=== PATIENT | male | born 1965 | race Caucasian/White ===

== ENCOUNTER 2017-11-15 21:29 | Inpatient (IN) | payer OTHER ==
[~2017-11-15] VITALS: Ht 172.7 cm; Wt 107.5 kg
--- NOTE | ~2017-11-15 | EKG ---
[place] [address] [facility] [facility] [place] [address] ELECTROCARDIOGRAM REPORT Name: ANNEL REINOSO Room #: 349-I ADM IN M.R.#: [id number] Admission: 11/16/17 Attend Phys: Westley Navarro MD Discharge: Date of : 67 Report #: [id number] THIS REPORT FOR: //name// [facility] ED Test Date: 2017-11-15 Test Time: 21:57:26 Pat Name: ANNEL REINOSO Department: Room: 349 Gender: M Interpreter Translator: Mandy CHURCHILL : 1965 Requested By: Lei Ryan Order Number: [id number] MD: Roger Frank Measurements Intervals [place] Rate: 105 P: 36 TX: 199 QRS: 26 QRSD: 98 T: 15 QT: 335 QTc: 443 Interpretive Statements Sinus tachycardia Borderline prolonged TX interval Borderline T wave abnormalities No previous ECG available for comparison Electronically Signed On 11-16-2017 8:24:13 MEAT BUTCHER by Roger Frank [email or web address] <ELECTRONICALLY SIGNED> By: Roger Frank MD, [facility] 11/16/17 0824 [id number] [id number] Roger Frank MD, FACC /EPI
--- NOTE | ~2017-11-15 | HC ---
[facility] [place] [address] CONSULTATION Name: ANNEL REINOSO Room #: 349-I ADM IN M.R.#: [id number] Admission: 11/16/17 Attend Phys: John Jade MD Discharge: Date of : 67 Report #: [id number] THIS REPORT FOR: //name// CC: Vandana Navarro REASON FOR CONSULTATION: I was asked to evaluate concerning pulmonary infiltrates. HISTORY OF PRESENT ILLNESS: The patient was a 52-year-old with a history of gastroesophageal reflux and ventral hernia. About 3 weeks ago, had acute onset of epistaxis. It was significant enough that he had to come home from work. It happened another time several days later. He was evaluated in the outpatient clinic by ENT. He was scheduled to have a CAT scan of his sinuses. Yesterday noticed some discomfort in his posterior oropharynx with a tickle sensation. He then developed a cough with hemoptysis. He has been progressively short of breath over the last several months to a year. He has gained a significant amount of weight. No fever, chills or sweats noted. Also, no fever or chills in the last several days. He has had no previous sinus, pulmonary or GI interventions. He has had a ventral hernia repair and does have known gastroesophageal reflux. He uses a large amount of Aleve for degenerative arthritis symptoms. No HIV risk factors. No tuberculosis exposure. No recent travel. Lives with his . He is otherwise feeling reasonably well. 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 He reports no vomiting, diarrhea, blood in his stool, blood in his urine, rash, iritis symptoms, swelling of his joints, neurologic changes. ALLERGIES: None. MEDICATIONS: As noted on his MAR, having been placed on azithromycin and ceftriaxone. FAMILY HISTORY: Noncontributory. SOCIAL HISTORY: He is a past smoker. No significant alcohol intake. He does smoke marijuana on occasion. PAST MEDICAL HISTORY: Degenerative arthritis, abdominal ventral hernia repair, hypertension. REVIEW OF SYSTEMS: Noted above. PHYSICAL EXAMINATION: VITAL SIGNS: Afebrile, hemodynamically stable. GENERAL: He is alert and cooperative and pleasant, in no acute distress. He is [address] [address] CONSULTATION Name: ANNEL REINOSO Room #: 349-I ADM IN M.R.#: [id number] Admission: 11/16/17 Attend Phys: John Jade MD Discharge: Date of : 67 Report #: [id number]. SKIN: Unremarkable. LYMPH: Unremarkable. HEENT: Unremarkable. NECK: Supple, no adenopathy. LUNGS: Crackles in the bases bilaterally, no consolidation. HEART: Regular, without murmur. ABDOMEN: Protuberant. He had a ventral hernia in the upper abdomen. No hepatosplenomegaly or mass. EXTREMITIES: Unremarkable. NEUROLOGIC: Unremarkable. LABORATORY STUDIES: Sodium 142, potassium 4, bicarbonate 27, creatinine 0.9, alkaline phosphatase 43, ALT less than 6. INR 1. Hemoglobin 11.2, platelet count 285,000, WBC 7.9, unremarkable differential. Sedimentation rate was 15. ANCA pending. Blood cultures pending. Chest x-ray, bilateral pulmonary infiltrates, greatest in the bases. CT of the chest shows the same with moderate mediastinal adenopathy. CT of the sinuses showed mucus plugging in the left ostiomeatal complex. He had mild left maxillary sinus thickening. No air fluid levels identified. No bony erosions. IMPRESSION: A 52-year-old with hemoptysis and a history of recent epistaxis with bilateral interstitial pulmonary infiltrates, left greater than right, mostly in the lower lobes. He does have some upper lobe disease and some adenopathy. Would suggest atypical infection versus vasculitis. Would recommend obtaining samples for bacteria, AFB, virus serum studies for HIV, histoplasma, mycobacterial disease. Hold his Aleve for now. I have discussed with Pulmonary Medicine. Pending further evaluation, may need bronchoscopy to further delineate this process. Would control blood pressure for he does have evidence of hypertension that may be contributing to his nosebleeds. <ELECTRONICALLY SIGNED> By: Guy Aguilar MD 11/17/17 0826 1135 1200 Guy Aguilar MD /nt
[2017-11-15 21:33] VITALS: BP 148/102; BP 170/102
[2017-11-15 22:13] LABS: ANION GAP 13 mmol/L (7-16); CALCIUM 7.7 mg/dL (8.5-10.1); CHLORIDE 104 mmol/L (98-107); CO2 26 mmol/L (21-32); POTASSIUM 3.8 mmol/L (3.5-5.1); SODIUM 143 mmol/L (136-145)
[2017-11-15 22:15] LABS: ABSOLUTE NEUTROPHILS 5.7 thou/uL (1.4-8.2); BASOPHILS 0.6 % (0.0-2.0); EOSINOPHILS 3.1 % (0.0-3.0); HEMATOCRIT 36.3 % (42.0-52.0); HEMOGLOBIN 12.6 gm/dL (14.0-18.0); LYMPHOCYTES 20.3 % (24.0-44.0); MCH 30.5 pg (26.0-34.0); MCHC 34.6 g/dL (28.0-37.0); MCV 87.9 fL (80.0-100.0); PLATELET COUNT 322 thou/uL (150-400); RBC 4.12 mil/uL (4.50-6.00); RDW 13.6 % (10.5-14.5); WBC 8.2 thou/uL (4.0-11.0)
[2017-11-15 22:22] LABS: ALBUMIN 3.6 g/dL (3.4-5.0); LIPASE 180 U/L (73-393); SGPT < 6 U/L (30-65); TOTAL BILIRUBIN 0.5 mg/dL (<0.1-1.0); TROPONIN-I < 0.04 ng/mL (<0.06)
[2017-11-15 22:23] LABS: BUN 18 mg/dL (7-18); GLUCOSE 207 mg/dL (74-106)
[2017-11-15 22:42] LABS: DIRECT BILIRUBIN < 0.1 mg/dL (<0.1-0.3)
[2017-11-15 23:05] LABS: SGOT 33 U/L (15-37)
[2017-11-16] VITALS (7 sets, daily range): BP systolic 138–170; BP diastolic 76–108
[2017-11-16 04:15] LABS: HEMATOCRIT 33.9 % (42.0-52.0); HEMOGLOBIN 11.2 gm/dL (14.0-18.0); MCH 29.1 pg (26.0-34.0); MCHC 33.1 g/dL (28.0-37.0); RBC 3.85 mil/uL (4.50-6.00); WBC 7.9 thou/uL (4.0-11.0)
[2017-11-16 04:23] LABS: CALCIUM 8.4 mg/dL (8.5-10.1); CREATININE 0.9 mg/dL (0.7-1.3)
[2017-11-16 04:27] LABS: % SATURATION 9 % (20-39); IRON 33 ug/dL (65-175); TIBC 380 ug/dL (250-450)
[2017-11-16 04:57] LABS: FOLIC ACID 8.7 ng/mL (8.6-58.9)
[2017-11-16 08:43] LABS: APTT 29.3 Seconds (24.5-32.8)
[2017-11-16 12:11] LABS: GLYCOHEMOGLOBIN (HGB A1C) 5.8 % (4.8-5.6)
[2017-11-16 22:11] LABS: HIV ANTIBODY Non Reactive (Non Reactive)
[2017-11-17 03:40] VITALS: BP 148/85
[2017-11-17 06:26] LABS: ABSOLUTE NEUTROPHILS 6.7 thou/uL (1.4-8.2); BASOPHILS 0.9 % (0.0-2.0); EOSINOPHILS 2.1 % (0.0-3.0); HEMATOCRIT 38.8 % (42.0-52.0); HEMOGLOBIN 12.5 gm/dL (14.0-18.0); LYMPHOCYTES 19.8 % (24.0-44.0); MCH 28.3 pg (26.0-34.0); MCHC 32.2 g/dL (28.0-37.0); MCV 87.8 fL (80.0-100.0); MONOCYTES 7.2 % (1.0-8.0); PLATELET COUNT 331 thou/uL (150-400); RBC 4.42 mil/uL (4.50-6.00); RDW 13.9 % (10.5-14.5); WBC 9.5 thou/uL (4.0-11.0)
[2017-11-17 06:41] LABS: CALCIUM 9.7 mg/dL (8.5-10.1); POTASSIUM 4.5 mmol/L (3.5-5.1)
[2017-11-17 07:30] VITALS: BP 123/74
[2017-11-17] MEDS ORDERED: AZITHROMYCIN 2250 MG PO (12:52)
[2017-11-17] MEDS ORDERED: CEFDINIR300 MG PO (12:52)
[2017-11-17 13:02] VITALS: BP 123/74
[2017-11-19 09:08] LABS: ANTI-DNA SCREEN <1 IU/mL (0-9); ANTI-RNP 0.5 AI (0.0-0.9)
[2017-11-19 15:06] LABS: T-SPOT.TB Negative
== END 2017-11-17 14:03 | disposition home or self-care (01) | DRG 871 ==
LOC: ER 21:29 → EROBS 11-16 01:27 → 3W 11-16 01:27
PROVIDERS: Emergency Medicine; Hospitalist; Internal Medicine Pulmonary Disease; Nurse Practitioner Family; Specialist
DX: A41.9 Sepsis, unspecified organism (principal); J18.9 Pneumonia, unspecified organism; R04.2 Hemoptysis; I10 Essential (primary) hypertension; K21.9 Gastro-esophageal reflux disease without esophagitis; R59.9 Enlarged lymph nodes, unspecified; M19.90 Unspecified osteoarthritis, unspecified site; F12.90 Cannabis use, unspecified, uncomplicated; D50.9 Iron deficiency anemia, unspecified; K43.9 Ventral hernia without obstruction or gangrene; R04.0 Epistaxis; I25.10 Atherosclerotic heart disease of native coronary artery without angina pectoris; Z87.891 Personal history of nicotine dependence; Z79.1 Long term (current) use of non-steroidal anti-inflammatories (NSAID)
CPT/HCPCS: 10879

== ENCOUNTER 2020-02-09 18:32 | Inpatient (IN) | payer OTHER ==
[~2020-02-09] VITALS: Ht 172.7 cm; Wt 108.9 kg
[~2020-02-09 18:32] MED LIST: AZITHROMYCIN 2250 MG PO; CEFDINIR300 MG PO
[2020-02-09 18:47] VITALS: BP 187/115
[2020-02-09 19:32] LABS: ABSOLUTE NEUTROPHILS 9.1 thou/uL (1.4-8.2); BASOPHILS 1.4 % (0.0-2.0); EOSINOPHILS 2.4 % (0.0-3.0); HEMATOCRIT 40.2 % (42.0-52.0); HEMOGLOBIN 13.4 gm/dL (14.0-18.0); LYMPHOCYTES 13.6 % (24.0-44.0); MCH 29.4 pg (26.0-34.0); MCHC 33.3 g/dL (28.0-37.0); MCV 88.1 fL (80.0-100.0); MONOCYTES 6.6 % (1.0-8.0); PLATELET COUNT 407 thou/uL (150-400); RBC 4.56 mil/uL (4.50-6.00); RDW 14.1 % (10.5-14.5)
[2020-02-09 19:32] LABS: BE(vivo) 0.1 mmol/L (-2 to +3); HCO3 25.6 mmol/L (22.0-26.0); PCO2 44.8 mmHg (35.0-45.0); PO2 126.5 mmHg (80.0-100.0); pH 7.375 (7.360-7.450); sO2 98.4 % (92.0-98.0)
[2020-02-09 19:40] LABS: CALCIUM 9.1 mg/dL (8.5-10.1); CREATININE 1.2 mg/dL (0.7-1.3); POTASSIUM 4.2 mmol/L (3.5-5.1)
[2020-02-09 20:21] LABS: DIRECT BILIRUBIN < 0.1 mg/dL (<0.1-0.2); SGOT 31 U/L (15-37); SGPT 49 U/L (30-65); TOTAL BILIRUBIN 0.6 mg/dL (<0.1-1.0); TOTAL PROTEIN 8.5 g/dL (6.4-8.2)
[2020-02-09 21:35] VITALS: BP 176/114
[2020-02-09 21:40] VITALS: BP 164/07
[2020-02-09 22:33] VITALS: BP 148/92
[2020-02-10] VITALS (7 sets, daily range): BP systolic 105–154; BP diastolic 58–105
--- NOTE | 2020-02-10 04:50 | NUR ---
PATIENT TRANSFERRED FROM ER TO 3W. ASSUMED CARE OF PATIENT AT APPROXIMATELY 2230. PATIENT ON ENHANCED PRECAUTIONS FOR COVID R/O. PATIENT UP AD DERRICK IN ROOM. PATIENT NOTED TO BE TACHYPNEIC WITH RESPIRATIONS IN THE 30s AFTER AMBULATION DESPITE 3L OF O2 VIA NC IN PLACE. AT APPROXIMATELY 0130 PATIENT HAD A SERIES OF MULTIPLE PAUSES WHERE PULSE WOULD RAPIDLY DECREASE FROM 90s to 40s. PATIENT DENIES HX OF SLEEP APNEA AND STATED HE DID NOT NOTICE THE EVENT OR "FEEL ANY DIFFERENT THAN NORMAL" UPON ASSESSMENT. ORDERED A MAGNESIUM LEVEL FROM LAB WITH RESULTING MAG LEVEL OF 2.0. NO OTHER EVENTS NOTED. WILL CONTINUE TO MONITOR.
[2020-02-10 07:03] LABS: HEMATOCRIT 39.7 % (42.0-52.0); HEMOGLOBIN 13.1 gm/dL (14.0-18.0); MCH 29.1 pg (26.0-34.0); MCHC 32.9 g/dL (28.0-37.0); MCV 88.2 fL (80.0-100.0); RBC 4.5 mil/uL (4.50-6.00); RDW 13.8 % (10.5-14.5); WBC 9.6 thou/uL (4.0-11.0)
[2020-02-10 07:26] LABS: CHOLESTEROL 206 mg/dL (<200); HDL CHOLESTEROL 27 mg/dL (>40); LDL CHOLESTEROL 153 mg/dL (<100); TC:HDL 7.6 Ratio (Not establshd); TRIGLYCERIDE 131 mg/dL (<150); VLDL 26 mg/dL (<40)
[2020-02-10 07:27] LABS: ALBUMIN 3.6 g/dL (3.4-5.0); MAGNESIUM 2.1 mg/dL (1.8-2.4); POTASSIUM 4.3 mmol/L (3.5-5.1); TOTAL BILIRUBIN 0.9 mg/dL (<0.1-1.0); TOTAL PROTEIN 7.8 g/dL (6.4-8.2)
--- NOTE | 2020-02-10 08:45 | EKG ---
[facility] [place] [address] ELECTROCARDIOGRAM REPORT Name: ANNEL REINOSO Room #: 354-P ADM IN M.R.#: [id number] Admission: 02/09/20 Attend Phys: Luis Morataya MD Discharge: Date of : 67 Report #: [id number] THIS REPORT FOR: cc: Vandana Madrid Christine L. DO Lundgren,Roger Reich MD [facility] THIS REPORT FOR: //name// 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
--- NOTE | 2020-02-10 11:53 | NUR ---
PT MOVED TO ROOM [address] ZAFAR
--- NOTE | 2020-02-10 14:24 | NUR ---
INITIAL ASSESSMENT: SW reviewed chart and spoke with nursing and attending physician. Pt was admitted from home due to bilateral pneumonia. Pt is in Enhanced Isolation to r/o COVID-19. First COVID-19 test was negative. Repeat test ordered today. Pt moved into the Reverse Isolation. Pt is currently on IV abx and O2 at 3L. SW spoke with pt via phone. Introduced role of SW. Pt is alert/orientated x 4. Pt and his fiance live at home. Prior to admission, pt was independent with ADLs. No use of DME. Pt's PCP is Dr. Vandana Madrid. No hx of services or post-acute placement. Plan is for pt to discharge home when medically stable. SW is following to assist as needed with discharge planning.
--- NOTE | 2020-02-10 16:11 | NUR ---
PT UP TO BATH ROOM AND WALKED ROOM. TAKING IN GOOD PO. PROGRESSING TOWARDS GOALS, WILL CONTINUE TO ASSESS.
--- NOTE | 2020-02-10 22:54 | NUR ---
PT RESTING IN BED WATCHING TV. AMBULATES STEADY AND INDEPENDENTLY. PT REPORTS FREQUENT STOOLS. WIPES PROVIDED. PT REQUESTED SNACK AND PROVIDED. O2 PER NC 3L, LUNGS WITH WHEEZES. PT DISCUSSED ANXIETY RE WIFES COVID TEST RESULTS AND HOPES THEY ARE NEGATIVE LIKE HIS. PT SMILING PLEASANT REPEATEDLY THANKING STAFF FOR THE CARES PROVIDED.
[2020-02-11 04:34] VITALS: BP 135/95
[2020-02-11 06:02] LABS: HEMATOCRIT 41.9 % (42.0-52.0); HEMOGLOBIN 13.8 gm/dL (14.0-18.0); MCH 29.4 pg (26.0-34.0); MCV 89.1 fL (80.0-100.0); RBC 4.7 mil/uL (4.50-6.00); RDW 13.8 % (10.5-14.5); WBC 9.7 thou/uL (4.0-11.0)
[2020-02-11 06:23] LABS: CALCIUM 9.3 mg/dL (8.5-10.1); MAGNESIUM 2.3 mg/dL (1.8-2.4); POTASSIUM 4.4 mmol/L (3.5-5.1); TROPONIN-I 0.06 ng/mL (<0.06)
[2020-02-11 08:17] VITALS: BP 135/96
--- NOTE | 2020-02-11 10:48 | 2DMMODE ---
[facility] [place] [address] 2 D/M-MODE ECHOCARDIOGRAM Name: ANNEL REINOSO Room #: 349-I ADM IN M.R.#: [id number] Admission: 02/09/20 Attend Phys: Luis Morataya MD Discharge: Date of : 67 Report #: [id number] THIS REPORT FOR: cc: Vandana Madrid Christine L. DO Lammoglia, Francisco J. MD ~ APPROVED REPORT Study performed: 02/11/2020 09:23:50 EXAM: Comprehensive 2D, Doppler, and color-flow Echocardiogram Patient Location: Bedside Room #: 349 Status: routine BSA: 2.19 HR: 90 bpm BP: 135/95 mmHg Rhythm: NSR Other Information Study Quality: Technically Difficult Technically limited study due to body habitus, unable to use optison/IV not working. Indications Hypertension/HDD 2D Dimensions RVDd: 43.08 mm IVSd: 14.95 (7-11mm) LVOT Diam: 23.53 (18-24mm) LVDd: 38.77 mm PWd: 14.45 (7-11mm) Ascending Ao: 32.03 (22-36mm) LVDs: 24.64 (25-40mm) Aortic Root: 37.81 mm Volumes Left Atrial Volume (Systole) Single Plane 4CH: 47.22 mL Single Plane 2CH: 49.98 mL LA ESV Index: 24.00 mL/m2 Aortic Valve AoV Peak Anderson.: 1.28 m/s AO Peak Gr.: 6.56 mmHg LVOT Max P.72 mmHg LVOT Max V: 0.82 m/s [facility] [address] [place] [address] 2 D/M-MODE ECHOCARDIOGRAM Name: ANNEL REINOSO Room #: 349-I ADM IN .Jasen.#: [id number] Admission: 02/09/20 Attend Phys: Luis Morataya MD Discharge: Date of : 67 Report #: [id number] UMA Vmax: 2.80 cm2 Mitral Valve E/A Ratio: 0.7 MV Decel. Time: 177.71 ms MV E Max Naderson.: 0.66 m/s MV A Anderson.: 0.91 m/s MV PHT: 51.54 ms IVRT: 124.57 ms Pulmonary Valve PV Peak Anderson.: 0.96 m/s PV Peak Gr.: 3.71 mmHg Left Ventricle The left ventricle is normal size. Mild to moderate concentric left ventricular hypertrophy. The left ventricular systolic function is normal. The left ventricular ejection fraction is within the normal range. LVEF is 60-65%. Mild diastolic dysfunction is present (impaired relaxation pattern). Right Ventricle Right ventricle is mildly dilated. The right ventricular systolic function is normal. Atria The left atrium size is normal. The right atrium size is normal. Aortic Valve The aortic valve is normal in structure. No aortic regurgitation is present. There is no aortic valvular stenosis. Mitral Valve Mild mitral annular calcification. There is no mitral valve regurgitation noted. No evidence of mitral valve stenosis. Tricuspid Valve The tricuspid valve is normal in structure. Trace tricuspid regurgitation. Unable to assess PA pressure. Pulmonic Valve The pulmonary valve is normal in structure. There is no pulmonic valvular regurgitation. Great Vessels The aortic root is normal in size. IVC is not [facility] [address] [place] [address] 2 D/M-MODE [facility] #: [facility]-I ADM IN M.R.#: [id number] Admission: 02/09/20 Attend Phys: Luis Morataya MD Discharge: Date of : 67 Report #: [id number] visualized. Pericardium There is no pericardial effusion. <Conclusion> The left ventricle is normal size. LVEF is 60-65%. Right ventricle is mildly dilated. The aortic valve is normal in structure. Mild mitral annular calcification. The tricuspid valve is normal in structure. Trace tricuspid regurgitation. Unable to assess PA pressure. The pulmonary valve is normal in structure. There is no pericardial effusion. <ELECTRONICALLY SIGNED> By: Samir Magana MD 02/11/20 1046 1046 1046 Samir Magana MD /INF
[2020-02-11 16:00] VITALS: BP 129/88
--- NOTE | 2020-02-11 17:53 | NUR ---
ASSUMED PTIENT CARE AT 0700. A/O X4. PLEASANT. TITRATED 02 TO IL/NC.VSS. LOW GRADE TEMP. DENIES SOB. SLOWLY TOWARDS POC GOALS
[2020-02-11 19:20] VITALS: BP 133/92
[2020-02-12 03:55] VITALS: BP 120/81
[2020-02-12 05:36] LABS: ABSOLUTE NEUTROPHILS 7.7 thou/uL (1.4-8.2); BASOPHILS 0.9 % (0.0-2.0); EOSINOPHILS 3.1 % (0.0-3.0); HEMATOCRIT 42.5 % (42.0-52.0); HEMOGLOBIN 14.1 gm/dL (14.0-18.0); LYMPHOCYTES 19.7 % (24.0-44.0); MCH 29.4 pg (26.0-34.0); MCHC 33.2 g/dL (28.0-37.0); MCV 88.5 fL (80.0-100.0); MONOCYTES 8.4 % (1.0-8.0); PLATELET COUNT 417 thou/uL (150-400); POLYS 67.9 % (36.0-66.0); RBC 4.81 mil/uL (4.50-6.00); RDW 13.8 % (10.5-14.5); WBC 11.3 thou/uL (4.0-11.0)
[2020-02-12 06:00] LABS: ANION GAP 7 mmol/L (7-16); BUN 17 mg/dL (7-18); CALCIUM 9.4 mg/dL (8.5-10.1); CHLORIDE 98 mmol/L (98-107); CO2 30 mmol/L (21-32); GLUCOSE 104 mg/dL (74-106); MAGNESIUM 2.1 mg/dL (1.8-2.4); POTASSIUM 4.3 mmol/L (3.5-5.1); SODIUM 135 mmol/L (136-145); TROPONIN-I <0.06 ng/mL (<0.06)
--- NOTE | 2020-02-12 06:21 | NUR ---
PT MAKING PROGRESS TOWARDS GOALS. ON O2 AT 1L PER NC OVERNIGHT. PT DID REPORT THAT HE HAS ONLY FELT MILDY SOA WITH ACTIVITY. LUNGS CLEAR OVERNIGHT EXCEPT FAINT WHEEZE NOTED OVER THE LEFT LOWER LOBE AT MIDNIGHT. HOPES TO BE ABLE TO GO HOME TODAY.
[2020-02-12 08:00] VITALS: BP 140/98
[2020-02-12 12:30] VITALS: BP 141/94
[2020-02-12 16:40] VITALS: BP 122/94
--- NOTE | 2020-02-12 19:26 | NUR ---
PT VERY ANXIOUS TO DISCHARGE...DR CONCERNED REGARDING HIS NEED FOR O2 AND SOA WHEN UP IN ROOM...[facility] AND REASSESS HIS O2 NEEDS...IF ON RA WILL HAVE AN EXERCISE OXIMETRY...
[2020-02-12 20:00] VITALS: BP 124/91
--- NOTE | 2020-02-13 01:52 | NUR ---
A/O X 4.DENIES PAIN.PATIENT IS ON O2 1L NC.PATIENT IS HOPING TO GO HOME TOMORROW.PATIENT STATES "THEY PROBABLY SEND ME HOME WITH OXYGEN." MONITOR SHOWS SR.POC CONTINUED.
[2020-02-13 04:28] VITALS: BP 136/95
[2020-02-13 07:33] VITALS: BP 128/97
--- NOTE | 2020-02-13 08:56 | EKG ---
[facility] [place] [address] ELECTROCARDIOGRAM REPORT Name: ANNEL REINOSO Room #: 349-I ADM IN M.R.#: [id number] Admission: 02/09/20 Attend Phys: Luis Morataya MD Discharge: Date of : 67 Report #: [id number] THIS REPORT FOR: cc: Vandana Madrid Christine L. DO Lundgren,Roger Reich MD [facility] THIS REPORT FOR: //name// [facility] Test Date: 2020-02-11 Test Time: 07:58:54 Pat Name: ANNEL REINOSO Department: Room: 349 I Gender: M Stop Attacher: Jasen CORTEZ : 1965 Requested By: Luis Morataya Order Number: [id number] MD: Roger Frank Measurements Intervals [place] Rate: 86 P: 22 PA: 191 QRS: 16 QRSD: 88 T: 10 QT: 372 QTc: 445 Interpretive Statements Sinus rhythm Left atrial enlargement Compared to ECG 02/10/2020 08:40:23 No significant change was found Electronically Signed On 02-13-2020 8:54:57 CDT by Roger Frank [email or web address] <ELECTRONICALLY SIGNED> By: Roger Frank MD, FACC 02/13/20 0854 [id number] 0758 Roger Frank MD, [facility] /EPI
--- NOTE | 2020-02-13 11:49 | NUR ---
BELLO reviewed chart and spoke with nursing and attending physician. Pt remains in Enhanced Isolation to r/o COVID-19. Repeat test results are still pending. Pt requiring O2 and had CT scan earlier today. Awaiting results at this time. BELLO spoke with pt via phone to discuss discharge plan. Pt is hoping to discharge home today. BELLO explained that home O2 can be set up if needed. Pt states his will be able to provide transportation home when discharged. BELLO is following to assist as needed with discharge planning.
[2020-02-13 12:08] VITALS: BP 121/83
[2020-02-13 16:46] VITALS: BP 152/101
--- NOTE | 2020-02-13 19:34 | NUR ---
PT WAS HOPING TO DISCHARGE TODAY BUT HAD CT CHEST AND DECIDED PATIENT NEEDED TO STAY ANOTHER DAY AND STARTED ON IV STEROIDS... INFORMED...
[2020-02-13 21:00] VITALS: BP 155/105
[2020-02-13 23:44] VITALS: BP 137/100
[2020-02-14] VITALS (7 sets, daily range): BP systolic 120–153; BP diastolic 77–99
--- NOTE | 2020-02-14 01:06 | NUR ---
PTS 3 COVID TEST BACK NEGATIVE Fritz [place] NOTIFIED, PT NO LONGER ISOLATION, PT NOTIFIED AND ALSO THAT HE WOULD BE MOVING TO ANOTHER FLOOR, VSS, NO C/O PAIN, REMAINS ON 2L/NC SATS 95% NPC, NO C/O SOA WILL CON'T O MONITOR PER PPOC.
--- NOTE | 2020-02-14 04:38 | NUR ---
ASSUMED PT CARE AROUND 0149, PT WAS TRANSFERRED FROM ANOTHER UNIT. A&OX4. DENIES ANY PAIN. SOA W/ EXERTION. UP AD DERRICK ON THE ROOM WITH STEADY GAIT. VSS. AFEBRILE. O2 SATS STABLE ON 2L NC. PT HAS BEEN SLEEPING MOST OF THE NIGHT SINCE TRANSFER. PROGRESSING SLOWLY TOWARD POC GOALS. WILL CONTINUE TO MONITOR FURTHER.
[2020-02-14 14:08] LABS: ALBUMIN 3.7 g/dL (3.4-5.0); CALCIUM 9.7 mg/dL (8.5-10.1); CREATININE 1.5 mg/dL (0.7-1.3); POTASSIUM 4.9 mmol/L (3.5-5.1); TOTAL BILIRUBIN 0.5 mg/dL (<0.1-1.0); TOTAL PROTEIN 8.4 g/dL (6.4-8.2)
--- NOTE | 2020-02-14 15:35 | NUR ---
ORDERS RECEIVED FOR PT EVAL AND TREAT. Pt HAS BEEN UP AD DERRICK IN ROOM ON 1L O2 VIA NC. Pt LIVES WITH IN [place] HOME WITH STAIRS TO SECOND FLOOR BEDROOM AND STAIRS TO BASEMENT. 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 NO DME USE AT BASELINE. INDEP WITH ADLs. Pt STATED THAT HE HAS BEEN UP WALKING AROUND IN HIS ROOM AND TRYING TO CHANGE POSITION AND MOVE MUCH HE CAN. NO DIFFICULTY GETTING IN/OUT OF BATHROOM ON HIS OWN. STATED THAT HE WAS ON 3L O2 BUT NOW ON 1L. Pt STATED THAT HIS LEGS FELT A LITTLE WEAK BUT THAT WALKING WAS HELPING AND THAT HE DIDNT FEEL LIKE HE NEEDED PT AT THIS TIME. REPORTED NO ISSUES WITH BALANCE OR DIZZINESS WITH MOBILITY. Pt DECLINING PT NEEDS AT THIS TIME, THEREFORE ACUTE PT TO SIGN OFF. IF Pt EXPERIENCES CHANGE IN FUNCTIONAL STATUS, PLEASE CONSIDER RE-CONSULTING PT SERVICES.
--- NOTE | 2020-02-14 15:46 | NUR ---
ASSESSMENT CHARTED. PT ALERT AND ORIENTED. VS. DENIED HAVING PAIN OR DISCOMFORT. UP IN THE CHAIR THIS SHIFT. EVALUATED BY PT/OT. REPORT HAVING SOB WITH ACTIVITY. PT ON 1L O2. NO CARDIAC DISTRESS NOTED. WILL CONTINUE TO MONITOR.
[2020-02-15 04:33] VITALS: BP 118/76
--- NOTE | 2020-02-15 05:32 | NUR ---
PATIENTS CARES WERE ASSUMED AT SHIFT CHANGE. PATIENT ASSESSED AND MEDS WEE PASSED. PATIENTS C/O NEED DISCHARGED TODAY. HE STATES HE IS OUT OF SICK TIME. PATIENT IS INDEPENDANT IN HIS ROOM. HOURLY ROUNDS WERE DONE. THE BED IS IN A LOW AND LOCKED POSITION.
[2020-02-15 07:30] VITALS: BP 124/89
[2020-02-15] MEDS ORDERED: LISINOPRIL5 MG PO (09:46)
[2020-02-15] MEDS ORDERED: PROAIR HFA8.5 GM INH (09:46)
[2020-02-15] MEDS ORDERED: CEFDINIR300 MG PO (09:46)
[2020-02-15] MEDS ORDERED: PREDNISONE 10 M10 M1 PO (09:46)
[2020-02-15 11:00] VITALS: BP 106/77
[2020-02-15 11:12] VITALS: BP 124/89
--- NOTE | 2020-02-15 12:27 | NUR ---
ASSESSMENT CHARTED. PT ALERT AND ORIENTED. VSS. DENIED HAVING PAIN OR DISCOMFORT. SEEN BY DR. MOE AND DR. SULLIVAN. ORDERS GIVEN TO DISCHARGE PT TO HOME. DISCHARGE INSTRUCTIONS GIVEN TO PT. PT VERBERLISED UNDERSTANDING.
== END 2020-02-15 12:29 | disposition home or self-care (01) | DRG 871 ==
LOC: ER 18:32 → EROBS 20:20 → 3W 20:20 → 2N 02-14 01:51
PROVIDERS: Emergency Medicine; Hospitalist; Internal Medicine; Nurse Practitioner Family; ADMIT Internal Medicine
DX: A41.9 Sepsis, unspecified organism (principal); J18.9 Pneumonia, unspecified organism; J96.01 Acute respiratory failure with hypoxia; E87.1 Hypo-osmolality and hyponatremia; I10 Essential (primary) hypertension; R00.1 Bradycardia, unspecified; Z20.828 Contact with and (suspected) exposure to other viral communicable diseases; Z87.891 Personal history of nicotine dependence; Z79.899 Other long term (current) drug therapy; Z79.2 Long term (current) use of antibiotics; Z87.01 Personal history of pneumonia (recurrent)
CPT/HCPCS: 10081; 10879